=== PATIENT | female | born 1985 | race American Indian/Alaskan Native ===

== ENCOUNTER 2017-06-06 16:52 | Emergency (ER) | payer SELFPAY ==
[2017-06-06] MEDS ORDERED: DILAUDID IM ONE (18:02)
[2017-06-06] MEDS ORDERED: ZOFRAN IM ONE (18:03)
[2017-06-06] MEDS ORDERED: ZOFRAN IV ONE (18:04)
[2017-06-06] MEDS ORDERED: DILAUDID IV ONE (18:04)
[2017-06-06 18:33] LABS: Eosinophils % (Auto) 1.1 % (0.0-4.3); Hemoglobin 13.8 gm/dl (10.1-14.3); Mean Corpuscular HGB Conc 35 % (30-34); Mean Corpuscular Hemoglobin 33 pg (28-32); Mean Corpuscular Volume 95 fl (79-97); Platelet Count 237 K/mm3 (140-440); Red Blood Count 4.19 M/mm3 (3.65-5.03); White Blood Count 12.1 K/mm3 (4.5-11.0)
[2017-06-06 18:59] LABS: Anion Gap 20 mmol/L; BUN/Creatinine Ratio 13.33; Blood Urea Nitrogen 8 mg/dL (7-17); Calcium 8.4 mg/dL (8.4-10.2); Carbon Dioxide 20 mmol/L (22-30); Chloride 103.9 mmol/L (98-107); Glucose 77 mg/dL (65-100); Potassium 3.3 mmol/L (3.6-5.0); Sodium 141 mmol/L (137-145)
[2017-06-06] MEDS ORDERED: NACL 0.9% 1000 ML 1,000 ML IV ONE (19:11)
[2017-06-06] MEDS ORDERED: NACL 0.9% 1000 ML 1,000 ML ONE (19:14)
[2017-06-06] MEDS ORDERED: FLEXERIL PO ONE (21:05)
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
[2017-06-06 23:36] VITALS: BP 150/89
== END 2017-06-06 23:37 | disposition home or self-care (01) ==
LOC: ED 16:52
DX: M54.5 Low back pain (principal); I10 Essential (primary) hypertension; F17.200 Nicotine dependence, unspecified, uncomplicated
CPT/HCPCS: 36415; 80048; 85025; 96361; 96374; 96375; 99283; J1170; J2405; J7030